=== PATIENT | female | born 1935 | race Caucasian/White ===

== ENCOUNTER 2016-06-08 14:06 | Inpatient (IN) | payer OTHER ==
[~2016-06-08] VITALS: Ht 157.5 cm; Wt 99.0 kg
[~2016-06-08 14:06] MED LIST: ATENOLOL50 MG PO; CARDIZEM CD,CA240 MG PO; CYANOCOBALAM1000 MCG PO; Cardizem CD,Cartia X PO; Ecotrin PO; Effexor PO; FAMOTIDINE20 MG PO; Feosol PO; HYDROCHLOROTHIA25 MG PO; HYDROCODON-ACE1 EAC7 PO; HYDROCODON-ACE1 EAC8 PO; Hydrodiuril,Oretic,E PO; KEFLEX500 MG PO; LORATADINE10 M2 PO; Pepcid PO; Senokot S,Pericolace PO; Tenormin PO; VENLAFAXINE HCL75 M3 PO; Vicodin,Norco 5/325 PO
[2016-06-08 15:16] LABS: HEMATOCRIT 41.4 % (36.0-46.0); MCH 29.4 PG (29.0-34.0); MCHC 33.1 G/DL (30.0-36.0); MCV 88.8 FL (83-99); MEAN PLAT.VOLUME 10.5 uM^3 (9.5-12.4); PLATELET COUNT 220 K/uL (156-360); RBC DIS.WIDTH-CV 13.4 % (11.8-14.6); RBC DIS.WIDTH-SD 42.8 % (39-53); RED BLOOD COUNT 4.66 M/uL (3.80-5.20); WHITE BLOOD COUNT 19.4 K/uL (4.1-10.2)
[2016-06-08 15:23] LABS: EOSINOPHIL (%) 0.6 % (0-5); EOSINOPHIL COUNT 0.1 K/uL (0-0.3); IMMATURE GRANULOCYTE (%) 0.3 % (0.0-0.7); IMMATURE GRANULOCYTE COUNT 0.5 K/uL; LYMPHOCYTE COUNT 1.8 K/uL (1.0-2.8); MONOCYTE (%) 11.5 % (3-12); MONOCYTE COUNT 2.2 K/uL (0-0.8); NEUTROPHIL (%) 78.4 % (45-76); NEUTROPHIL COUNT 15.2 K/uL (1.8-6.4)
[2016-06-08 15:34] LABS: CHLORIDE 99 mEq/L (99-109); POTASSIUM 4.1 mEq/L (3.7-5.4); SODIUM 133 mEq/L (136-147)
[2016-06-08 15:36] LABS: GLUCOSE 126 mg/dL (70-99)
[2016-06-08 15:37] LABS: ANION GAP 15 MEQ/L (2-14)
[2016-06-08 15:39] LABS: GFR ESTIMATE (CALCULATED) 51 mL/min/
[2016-06-08 15:40] LABS: UREA NITROGEN (BUN) 24 mg/dL (9-23)
[2016-06-08] MEDS ORDERED: NAPROSYN375 MG PO (17:42)
[2016-06-08] MEDS ORDERED: ERYTHROMYC1 APPLICAT BOTH EYES (17:43)
[2016-06-08 21:17] LABS: ERTH.SED.RATE 61 MM/HR (0-30)
[2016-06-08 21:22] VITALS: BP 158/67
[2016-06-08 21:46] LABS: Estimated Average Glucose 128 mg/dL (70-123); HEMOGLOBIN A1c (GLYCOHEMOGLOB) 6.1 % HGB (Below 5.7)
[2016-06-08 22:33] LABS: C-REACTIVE PROTEIN 233.4 MG/L (0-10)
[2016-06-09] VITALS (7 sets, daily range): BP systolic 140–176; BP diastolic 65–79
[2016-06-09 07:12] LABS: HEMATOCRIT 38.2 % (36.0-46.0); MCH 28.7 PG (29.0-34.0); MCHC 32.2 G/DL (30.0-36.0); MCV 89.3 FL (83-99); MEAN PLAT.VOLUME 10.5 uM^3 (9.5-12.4); PLATELET COUNT 191 K/uL (156-360); RBC DIS.WIDTH-CV 13.7 % (11.8-14.6); RBC DIS.WIDTH-SD 44.4 % (39-53); RED BLOOD COUNT 4.28 M/uL (3.80-5.20); WHITE BLOOD COUNT 18.5 K/uL (4.1-10.2)
[2016-06-09 07:42] LABS: ANION GAP 9 MEQ/L (2-14); CHLORIDE 100 MEQ/L (99-109); GFR ESTIMATE (CALCULATED) 51 mL/min/; GLUCOSE 114 mg/dL (70-99); POTASSIUM 3.7 MEQ/L (3.7-5.4); SAMPLE HEMOLYSIS CHECK 0; SAMPLE ICTERIC CHECK 0; SAMPLE LIPEMIA CHECK 0; SODIUM 135 MEQ/L (136-147); UREA NITROGEN (BUN) 22 mg/dL (9-23)
[2016-06-09 08:01] LABS: EOSINOPHIL (%) 1.5 % (0-5); EOSINOPHIL COUNT 0.3 K/uL (0-0.3); IMMATURE GRANULOCYTE (%) 0.5 % (0.0-0.7); IMMATURE GRANULOCYTE COUNT 0.1 K/uL; MONOCYTE (%) 11.9 % (3-12); MONOCYTE COUNT 2.2 K/uL (0-0.8); NEUTROPHIL (%) 75.4 % (45-76); NEUTROPHIL COUNT 13.9 K/uL (1.8-6.4)
[2016-06-10 03:37] VITALS: BP 140/60
[2016-06-10 07:34] VITALS: BP 166/73
[2016-06-10 07:36] LABS: HEMATOCRIT 37.2 % (36.0-46.0); MCHC 33.6 G/DL (30.0-36.0); MCV 89.2 FL (83-99); MEAN PLAT.VOLUME 10.7 uM^3 (9.5-12.4); PLATELET COUNT 228 K/uL (156-360); RBC DIS.WIDTH-CV 13.3 % (11.8-14.6); RBC DIS.WIDTH-SD 43.5 % (39-53); RED BLOOD COUNT 4.17 M/uL (3.80-5.20); WHITE BLOOD COUNT 17.2 K/uL (4.1-10.2)
[2016-06-10 08:01] LABS: EOSINOPHIL (%) 2.6 % (0-5); EOSINOPHIL COUNT 0.4 K/uL (0-0.3); IMMATURE GRANULOCYTE COUNT 0.2 K/uL; LYMPHOCYTE COUNT 2.4 K/uL (1.0-2.8); MONOCYTE (%) 12.4 % (3-12); MONOCYTE COUNT 2.1 K/uL (0-0.8); NEUTROPHIL (%) 69.7 % (45-76)
[2016-06-10 08:02] LABS: ALKALINE PHOSPHATASE 86 IU/L (3-129); ANION GAP 10 MEQ/L (2-14); CHLORIDE 101 MEQ/L (99-109); GFR ESTIMATE (CALCULATED) > 59 mL/min/; GLUCOSE 117 mg/dL (70-99); POTASSIUM 3.9 MEQ/L (3.7-5.4); SAMPLE HEMOLYSIS CHECK 0; SAMPLE ICTERIC CHECK 0; SAMPLE LIPEMIA CHECK 0; SODIUM 137 MEQ/L (136-147); TOTAL BILIRUBIN 0.5 MG/DL (0.0-1.0); UREA NITROGEN (BUN) 16 mg/dL (9-23)
[2016-06-10 16:10] VITALS: BP 153/81
[2016-06-10 23:27] VITALS: BP 149/62
[2016-06-11 07:06] LABS: HEMATOCRIT 37.1 % (36.0-46.0); MCH 30.9 PG (29.0-34.0); MCHC 34.5 G/DL (30.0-36.0); MCV 89.6 FL (83-99); MEAN PLAT.VOLUME 10.6 uM^3 (9.5-12.4); PLATELET COUNT 274 K/uL (156-360); RBC DIS.WIDTH-CV 13.4 % (11.8-14.6); RBC DIS.WIDTH-SD 43.9 % (39-53); RED BLOOD COUNT 4.14 M/uL (3.80-5.20); WHITE BLOOD COUNT 16.3 K/uL (4.1-10.2)
[2016-06-11 07:36] LABS: ALKALINE PHOSPHATASE 89 IU/L (3-129); ANION GAP 11 MEQ/L (2-14); CHLORIDE 101 MEQ/L (99-109); GFR ESTIMATE (CALCULATED) 56 mL/min/; GLUCOSE 110 mg/dL (70-99); SAMPLE HEMOLYSIS CHECK 0; SAMPLE ICTERIC CHECK 0; SAMPLE LIPEMIA CHECK 0; SODIUM 138 MEQ/L (136-147); TOTAL BILIRUBIN 0.5 MG/DL (0.0-1.0); UREA NITROGEN (BUN) 17 mg/dL (9-23)
[2016-06-11 07:44] VITALS: BP 156/70
[2016-06-11 08:21] LABS: BASOPHIL COUNT 0.1 K/uL (0-0.1); EOSINOPHIL (%) 3.3 % (0-5); EOSINOPHIL COUNT 0.5 K/uL (0-0.3); HEMATOLOGY COMMENT 1 REV; IMMATURE GRANULOCYTE (%) 3.3 % (0.0-0.7); IMMATURE GRANULOCYTE COUNT 0.5 K/uL; LYMPHOCYTE COUNT 3.2 K/uL (1.0-2.8); MONOCYTE (%) 12.8 % (3-12); MONOCYTE COUNT 2.1 K/uL (0-0.8); NEUTROPHIL (%) 60.8 % (45-76); NEUTROPHIL COUNT 9.9 K/uL (1.8-6.4); USER ID NJR
[2016-06-11 16:57] VITALS: BP 175/81
[2016-06-11 23:15] VITALS: BP 151/66
[2016-06-12 07:23] LABS: HEMATOCRIT 37.1 % (36.0-46.0); MCH 29.3 PG (29.0-34.0); MCHC 32.3 G/DL (30.0-36.0); MCV 90.5 FL (83-99); MEAN PLAT.VOLUME 10.1 uM^3 (9.5-12.4); PLATELET COUNT 325 K/uL (156-360); RBC DIS.WIDTH-CV 13.7 % (11.8-14.6); RBC DIS.WIDTH-SD 45.4 % (39-53); WHITE BLOOD COUNT 15.5 K/uL (4.1-10.2)
[2016-06-12 07:36] VITALS: BP 139/63
[2016-06-12 07:50] LABS: ANION GAP 11 MEQ/L (2-14); CHLORIDE 101 MEQ/L (99-109); GFR ESTIMATE (CALCULATED) > 59 mL/min/; GLUCOSE 114 mg/dL (70-99); POTASSIUM 4.4 MEQ/L (3.7-5.4); SAMPLE HEMOLYSIS CHECK 0; SAMPLE ICTERIC CHECK 0; SAMPLE LIPEMIA CHECK 0; SODIUM 140 MEQ/L (136-147); UREA NITROGEN (BUN) 16 mg/dL (9-23)
[2016-06-12] MEDS ORDERED: PEN-VEE K,VEET500 MG PO (10:44)
[2016-06-12] MEDS ORDERED: LISINOPRIL10 MG PO (10:45)
[2016-06-12] MEDS ORDERED: IODOSORB40 GM TP (10:46)
[2016-06-12] MEDS ORDERED: TRAMADOL HCL50 MG PO (10:46)
[2016-06-12 10:57] LABS: ABS NEUTROPHIL COUNT 9.95; ANISOCYTOSIS 1+; BASOPHIL COUNT 0.1 K/uL (0-0.1); EOSINOPHIL (%) 3.5 % (0-5); EOSINOPHIL ABS CT 0.16; EOSINOPHIL COUNT 0.5 K/uL (0-0.3); IMMATURE GRANULOCYTE (%) 7.8 % (0.0-0.7); IMMATURE GRANULOCYTE COUNT 1.2 K/uL; LYMPHOCYTE COUNT 3.1 K/uL (1.0-2.8); MACROCYTES OCC; MONOCYTE (%) 11.2 % (3-12); MONOCYTE COUNT 1.7 K/uL (0-0.8); NEUTROPHIL (%) 57.1 % (45-76); NEUTROPHIL COUNT 8.9 K/uL (1.8-6.4); PLAT.SUFFICIENCY ADEQUATE; SMUDGE CELLS 6
== END 2016-06-12 16:03 | disposition home or self-care (01) | DRG 570 ==
LOC: EME 14:06 → 2EAST 19:41 → EDOF 19:41 → 2EAST 20:53
PROVIDERS: Hospitalist
PROC: 0HBMXZZ Excision of Right Foot Skin, External Approach (ICD-10-PCS; principal; 2016-06-09)
DX: L03.115 Cellulitis of right lower limb (principal); L89.893 Pressure ulcer of other site, stage 3; L97.511 Non-pressure chronic ulcer of other part of right foot limited to breakdown of skin; E11.40 Type 2 diabetes mellitus with diabetic neuropathy, unspecified; E66.01 Morbid (severe) obesity due to excess calories; I10 Essential (primary) hypertension; F32.9 Major depressive disorder, single episode, unspecified; K21.9 Gastro-esophageal reflux disease without esophagitis; M19.90 Unspecified osteoarthritis, unspecified site; F41.9 Anxiety disorder, unspecified; Z68.39 Body mass index [BMI] 39.0-39.9, adult; B95.4 Other streptococcus as the cause of diseases classified elsewhere; Z90.49 Acquired absence of other specified parts of digestive tract; Z96.653 Presence of artificial knee joint, bilateral; Z85.038 Personal history of other malignant neoplasm of large intestine; Z86.010 Personal history of colon polyps
CPT/HCPCS: 71020; 73630; 73720; 80048; 80053; 81003; 82948; 83036; 83605; 85025; 85651; 86140; 87040; 87070; 87075; 87077; 87147; 87186; 87205; 93005; 93971; 99281; 99285; J0295; J0690; J1644; J1815; J3370; J7030; J7050

== ENCOUNTER 2016-07-25 16:06 | Inpatient (IN) | payer OTHER ==
[~2016-07-25] VITALS: Ht 157.5 cm; Wt 95.9 kg
[~2016-07-25 16:06] MED LIST changes: +ERYTHROMYC1 APPLICAT BOTH EYES; +IODOSORB40 GM TP; +LISINOPRIL10 MG PO; +NAPROSYN375 MG PO; +PEN-VEE K,VEET500 MG PO; +TRAMADOL HCL50 MG PO
[2016-07-25 16:34] LABS: BASOPHIL COUNT 0.1 K/uL (0-0.1); EOSINOPHIL (%) 0 % (0-5); HEMATOCRIT 40.7 % (36.0-46.0); IMMATURE GRANULOCYTE (%) 1.1 % (0.0-0.7); IMMATURE GRANULOCYTE COUNT 0.3 K/uL; INSTRUMENT ABS NEUTROPHIL CT 24.8 K/uL; LYMPHOCYTE COUNT 1.2 K/uL (1.0-2.8); MCH 29.2 PG (29.0-34.0); MCHC 32.9 G/DL (30.0-36.0); MCV 88.7 FL (83-99); MEAN PLAT.VOLUME 9.4 uM^3 (9.5-12.4); MONOCYTE (%) 3.7 % (3-12); NEUTROPHIL (%) 90.6 % (45-76); NEUTROPHIL COUNT 24.8 K/uL (1.8-6.4); PLATELET COUNT 255 K/uL (156-360); RBC DIS.WIDTH-CV 13.6 % (11.8-14.6); RBC DIS.WIDTH-SD 43.9 % (39-53); RED BLOOD COUNT 4.59 M/uL (3.80-5.20); WHITE BLOOD COUNT 27.3 K/uL (4.1-10.2)
[2016-07-25 16:41] LABS: CHLORIDE 102 mEq/L (99-109); POTASSIUM 4.6 mEq/L (3.7-5.4); SODIUM 133 mEq/L (136-147)
[2016-07-25 16:43] LABS: GLUCOSE 143 mg/dL (70-99)
[2016-07-25 16:44] LABS: ANION GAP 12 MEQ/L (2-14)
[2016-07-25 16:47] LABS: GFR ESTIMATE (CALCULATED) 35 mL/min/; UREA NITROGEN (BUN) 35 mg/dL (9-23)
[2016-07-25 19:56] LABS: ADD MIUA? YES; BILIRUBIN NEGATIVE; BLOOD NEGATIVE; COLOR YELLOW ((YELLOW)); GLUCOSE (STRIP) NEGATIVE; KETONES NEGATIVE; LEUKOCYTES MODERATE; NITRITE POSITIVE; PROTEIN (STRIP) 30; SPECIFIC GRAVITY 1.018 (1.000-1.030); UROBILINOGEN 0.2 MG/DL (0.2-1.0)
[2016-07-25 20:00] LABS: BACTERIA 3+ /HPF; EPITHELIAL CELLS RARE /HPF; MUCUS 1+ /LPF; RED BLOOD CELLS 0-5 /HPF (0-5); UCUL ADDED? YES; WHITE BLOOD CELLS 40-50 /HPF (0-5)
[2016-07-25] MEDS ORDERED: LISINOPRIL10 MG PO (20:05)
[2016-07-25 23:22] LABS: POINT-OF-CARE METER ID UU14100415
[2016-07-25 23:56] LABS: C DIFF TOXIN NEGATIVE (NEGATIVE)
[2016-07-26 00:01] LABS: PROBE CHECK PASS; SPECIMEN PROCESSING CONTROL PASS
[2016-07-26 05:59] LABS: EOSINOPHIL (%) 0.1 % (0-5); HEMATOCRIT 36.6 % (36.0-46.0); IMMATURE GRANULOCYTE (%) 0.6 % (0.0-0.7); IMMATURE GRANULOCYTE COUNT 0.1 K/uL; INSTRUMENT ABS NEUTROPHIL CT 16.3 K/uL; LYMPHOCYTE COUNT 1.5 K/uL (1.0-2.8); MCH 28.6 PG (29.0-34.0); MCHC 31.7 G/DL (30.0-36.0); MCV 90.1 FL (83-99); MEAN PLAT.VOLUME 9.6 uM^3 (9.5-12.4); MONOCYTE COUNT 1.2 K/uL (0-0.8); NEUTROPHIL (%) 85.1 % (45-76); NEUTROPHIL COUNT 16.3 K/uL (1.8-6.4); PLATELET COUNT 198 K/uL (156-360); RBC DIS.WIDTH-CV 13.9 % (11.8-14.6); RED BLOOD COUNT 4.06 M/uL (3.80-5.20); WHITE BLOOD COUNT 19.2 K/uL (4.1-10.2)
[2016-07-26 06:23] LABS: ANION GAP 8 MEQ/L (2-14); CHLORIDE 103 MEQ/L (99-109); GFR ESTIMATE (CALCULATED) 42 mL/min/; GLUCOSE 118 mg/dL (70-99); POTASSIUM 3.8 MEQ/L (3.7-5.4); SAMPLE HEMOLYSIS CHECK 0; SAMPLE ICTERIC CHECK 0; SAMPLE LIPEMIA CHECK 0; SODIUM 133 MEQ/L (136-147); UREA NITROGEN (BUN) 34 mg/dL (9-23)
[2016-07-26 10:57] VITALS: BP 169/79
[2016-07-26 11:34] LABS: POINT-OF-CARE METER ID UU13113807
[2016-07-26 12:25] LABS: POINT-OF-CARE METER ID UU13113807
[2016-07-26 14:59] VITALS: BP 123/60
[2016-07-26 15:58] LABS: POINT-OF-CARE METER ID UU13113807
[2016-07-26 20:00] VITALS: BP 110/72
[2016-07-26 21:52] LABS: POINT-OF-CARE METER ID UU13113807
[2016-07-27] VITALS (7 sets, daily range): BP systolic 99–179; BP diastolic 56–79
[2016-07-27 05:37] LABS: EOSINOPHIL (%) 1.3 % (0-5); EOSINOPHIL COUNT 0.2 K/uL (0-0.3); HEMATOCRIT 34.8 % (36.0-46.0); IMMATURE GRANULOCYTE (%) 0.6 % (0.0-0.7); IMMATURE GRANULOCYTE COUNT 0.1 K/uL; INSTRUMENT ABS NEUTROPHIL CT 11.2 K/uL; LYMPHOCYTE COUNT 2.5 K/uL (1.0-2.8); MCH 28.5 PG (29.0-34.0); MCHC 31.3 G/DL (30.0-36.0); MCV 91.1 FL (83-99); MEAN PLAT.VOLUME 10.3 uM^3 (9.5-12.4); MONOCYTE (%) 9.7 % (3-12); MONOCYTE COUNT 1.5 K/uL (0-0.8); NEUTROPHIL (%) 72.1 % (45-76); NEUTROPHIL COUNT 11.2 K/uL (1.8-6.4); PLATELET COUNT 193 K/uL (156-360); RBC DIS.WIDTH-CV 14.1 % (11.8-14.6); RED BLOOD COUNT 3.82 M/uL (3.80-5.20); WHITE BLOOD COUNT 15.6 K/uL (4.1-10.2)
[2016-07-27 06:34] LABS: ANION GAP 8 MEQ/L (2-14); CHLORIDE 104 MEQ/L (99-109); GFR ESTIMATE (CALCULATED) 56 mL/min/; POTASSIUM 3.8 MEQ/L (3.7-5.4); SAMPLE HEMOLYSIS CHECK 0; SAMPLE ICTERIC CHECK 0; SAMPLE LIPEMIA CHECK 0; SODIUM 134 MEQ/L (136-147); UREA NITROGEN (BUN) 22 mg/dL (9-23)
[2016-07-27 06:35] LABS: GLUCOSE 76 mg/dL (70-99)
[2016-07-27 07:28] LABS: Estimated Average Glucose 134 mg/dL (70-123); HEMOGLOBIN A1c (GLYCOHEMOGLOB) 6.3 % HGB (Below 5.7)
[2016-07-27 11:27] LABS: POINT-OF-CARE METER ID UU13113807; POINT-OF-CARE USER ID 606021404
[2016-07-27 17:32] LABS: POINT-OF-CARE METER ID UU13113807; POINT-OF-CARE USER ID 606021404
[2016-07-27 21:42] LABS: POINT-OF-CARE METER ID UU13113807
[2016-07-28 03:25] VITALS: BP 140/60
[2016-07-28 06:25] LABS: HEMATOCRIT 36.2 % (36.0-46.0); MCH 28.6 PG (29.0-34.0); MCV 89.4 FL (83-99); MEAN PLAT.VOLUME 9.9 uM^3 (9.5-12.4); PLATELET COUNT 217 K/uL (156-360); RBC DIS.WIDTH-CV 13.8 % (11.8-14.6); RBC DIS.WIDTH-SD 45.3 % (39-53); RED BLOOD COUNT 4.05 M/uL (3.80-5.20)
[2016-07-28 06:40] LABS: ANION GAP 9 MEQ/L (2-14); CHLORIDE 103 MEQ/L (99-109); GFR ESTIMATE (CALCULATED) 56 mL/min/; MAGNESIUM 1.4 mg/dl (1.3-2.7); SAMPLE HEMOLYSIS CHECK 0; SAMPLE ICTERIC CHECK 0; SAMPLE LIPEMIA CHECK 0; SODIUM 134 MEQ/L (136-147); UREA NITROGEN (BUN) 21 mg/dL (9-23)
[2016-07-28 06:41] LABS: GLUCOSE 109 mg/dL (70-99)
[2016-07-28 06:44] LABS: WHITE BLOOD COUNT 10.5 K/uL (4.1-10.2)
[2016-07-28 07:54] VITALS: BP 159/79
[2016-07-28 11:43] VITALS: BP 145/70
[2016-07-28 12:10] LABS: POINT-OF-CARE METER ID UU13113807; POINT-OF-CARE USER ID 606021404
[2016-07-28 16:48] VITALS: BP 140/68
[2016-07-28 17:00] LABS: POINT-OF-CARE METER ID UU13113807; POINT-OF-CARE USER ID 606021404
[2016-07-28 20:00] VITALS: BP 152/72
[2016-07-28 21:55] LABS: POINT-OF-CARE METER ID UU13113807
[2016-07-29] VITALS: BP 188/88
[2016-07-29 04:00] VITALS: BP 192/81
[2016-07-29 06:31] VITALS: BP 162/78
[2016-07-29 07:37] LABS: HEMATOCRIT 37.9 % (36.0-46.0); MCH 28.1 PG (29.0-34.0); MCHC 31.4 G/DL (30.0-36.0); MCV 89.4 FL (83-99); MEAN PLAT.VOLUME 9.7 uM^3 (9.5-12.4); PLATELET COUNT 257 K/uL (156-360); RBC DIS.WIDTH-CV 13.9 % (11.8-14.6); RBC DIS.WIDTH-SD 45.3 % (39-53); RED BLOOD COUNT 4.24 M/uL (3.80-5.20); WHITE BLOOD COUNT 10.1 K/uL (4.1-10.2)
[2016-07-29 08:00] VITALS: BP 163/77
[2016-07-29 08:01] LABS: ANION GAP 8 MEQ/L (2-14); CHLORIDE 104 MEQ/L (99-109); GFR ESTIMATE (CALCULATED) 56 mL/min/; GLUCOSE 108 mg/dL (70-99); POTASSIUM 4.2 MEQ/L (3.7-5.4); SAMPLE HEMOLYSIS CHECK 0; SAMPLE ICTERIC CHECK 0; SAMPLE LIPEMIA CHECK 0; SODIUM 135 MEQ/L (136-147); UREA NITROGEN (BUN) 21 mg/dL (9-23)
[2016-07-29 08:45] LABS: POINT-OF-CARE METER ID UU13113807
[2016-07-29] MEDS ORDERED: DICLOXACILLIN500 MG PO (09:29)
[2016-07-29 12:04] LABS: POINT-OF-CARE METER ID UU13113807
[2016-07-29 16:23] VITALS: BP 140/80
== END 2016-07-29 16:17 | disposition home health service (06) | DRG 872 ==
LOC: EME 16:06 → EDOF 20:28 → 4SOUTH 20:28
PROVIDERS: Family Medicine; Hospitalist; Internal Medicine; Physician Assistant Medical
DX: A41.9 Sepsis, unspecified organism (principal); N17.9 Acute kidney failure, unspecified; L97.419 Non-pressure chronic ulcer of right heel and midfoot with unspecified severity; L03.115 Cellulitis of right lower limb; N39.0 Urinary tract infection, site not specified; E86.0 Dehydration; I10 Essential (primary) hypertension; E78.5 Hyperlipidemia, unspecified; M19.90 Unspecified osteoarthritis, unspecified site; K21.9 Gastro-esophageal reflux disease without esophagitis; B96.1 Klebsiella pneumoniae [K. pneumoniae] as the cause of diseases classified elsewhere; Z68.38 Body mass index [BMI] 38.0-38.9, adult; E66.01 Morbid (severe) obesity due to excess calories; F41.9 Anxiety disorder, unspecified; Z85.038 Personal history of other malignant neoplasm of large intestine; Z96.653 Presence of artificial knee joint, bilateral; Z90.49 Acquired absence of other specified parts of digestive tract
CPT/HCPCS: 73720; 80048; 81003; 82948; 83036; 83605; 83735; 85025; 85027; 87040; 87077; 87086; 87186; 87493; 93971; 94799; 99281; 99285; J0690; J0696; J1650; J1815; J2405; J7030; J7050; J7120

== ENCOUNTER 2017-02-06 21:04 | Emergency (ER) | payer OTHER ==
[~2017-02-06] VITALS: Ht 160 cm; Wt 96.8 kg
[~2017-02-06 21:04] MED LIST changes: +DICLOXACILLIN500 MG PO
[2017-02-06 22:09] LABS: HEMATOCRIT 38.3 % (36.0-46.0); MCH 29.8 PG (29.0-34.0); MCHC 32.1 G/DL (30.0-36.0); MCV 92.7 FL (83-99); MEAN PLAT.VOLUME 9.7 uM^3 (9.5-12.4); PLATELET COUNT 213 K/uL (156-360); RBC DIS.WIDTH-CV 13.1 % (11.8-14.6); RBC DIS.WIDTH-SD 44.8 % (39-53); RED BLOOD COUNT 4.13 M/uL (3.80-5.20); WHITE BLOOD COUNT 14.6 K/uL (4.1-10.2)
[2017-02-06 22:15] LABS: INTER. NORMALIZED RATIO 1.2
[2017-02-06 22:18] LABS: CHLORIDE 100 mEq/L (99-109); SODIUM 133 mEq/L (136-147)
[2017-02-06 22:20] LABS: GLUCOSE 180 mg/dL (70-99)
[2017-02-06 22:21] LABS: ANION GAP 14 MEQ/L (2-14)
[2017-02-06 22:22] LABS: TOTAL BILIRUBIN 0.5 mg/dL (0.0-1.0)
[2017-02-06 22:24] LABS: ALKALINE PHOSPHATASE 91 IU/L (3-129); GFR ESTIMATE (CALCULATED) 20 mL/min/
[2017-02-06 22:25] LABS: UREA NITROGEN (BUN) 46 mg/dL (9-23)
[2017-02-07 00:33] LABS: ADD MIUA? YES; BILIRUBIN NEGATIVE; BLOOD MODERATE; COLOR YELLOW ((YELLOW)); GLUCOSE (STRIP) NEGATIVE; KETONES NEGATIVE; LEUKOCYTES NEGATIVE; NITRITE NEGATIVE; PROTEIN (STRIP) 30; SPECIFIC GRAVITY 1.008 (1.000-1.030); UROBILINOGEN 0.2 MG/DL (0.2-1.0)
[2017-02-07 00:57] LABS: BACTERIA 3+ /HPF; CASTS NONE SEEN /LPF; CRYSTALS NONE SEEN; EPITHELIAL CELLS RARE /HPF; MUCUS RARE /LPF; RED BLOOD CELLS NONE SEEN /HPF (0-5); WHITE BLOOD CELLS TNTC /HPF (0-5)
[2017-02-07] MEDS ORDERED: ZOFRAN4 MG PO (01:00)
[2017-02-07 01:25] VITALS: BP 137/70
== END 2017-02-07 01:33 | disposition home or self-care (01) ==
LOC: RME 21:04 → EME 21:04 → RME 02-07 01:33
PROVIDERS: Nurse Practitioner Family
DX: K52.9 Noninfective gastroenteritis and colitis, unspecified (principal); K62.5 Hemorrhage of anus and rectum; I10 Essential (primary) hypertension; F32.9 Major depressive disorder, single episode, unspecified; Z85.038 Personal history of other malignant neoplasm of large intestine; Z96.653 Presence of artificial knee joint, bilateral; Z87.442 Personal history of urinary calculi; K21.9 Gastro-esophageal reflux disease without esophagitis; Z88.8 Allergy status to other drugs, medicaments and biological substances; Z91.041 Radiographic dye allergy status
CPT/HCPCS: 74176; 80053; 81003; 83605; 85027; 85610; 85730; 86850; 86900; 86901; 99281; 99285; J7030